=== PATIENT | male | born 1990 | race Caucasian/White ===

== ENCOUNTER 2022-06-15 08:19 | Emergency (ER) | payer BC, SELFPAY ==
[2022-06-15 08:19] VITALS: BP 152/139; PULSE 97; RESP 16; TEMP 36.6; O2SAT 99; BMI 31.4
--- NOTE | 2022-06-15 08:34 | RAD_ITS ---
STUDY: X-RAY - RIGHT ANKLE REASON FOR EXAM: Male, 32 years old. INJURY PAIN THROUGHOUT ENTIRE ANKLE S/P INJURY PLAYING HOCKEY LAST NIGHT TECHNIQUE: 3 view(s) of the ankle. COMPARISON: None. FINDINGS: Normal visualized distal tibia and fibula. Normal medial and lateral malleoli. Normal tibiotalar articulation and ankle mortise. Normal visualized talus and calcaneus. The visualized subtalar, talonavicular, calcaneocuboid and tarsal articulations are normal. No visualized fracture or osteochondral defect. The soft tissue structures are unremarkable. RAD/Ankle min 3 Views IMPRESSION: Normal x-ray examination of the ankle. Electronically Signed: Kaushik Woodward MD at 9:32 EDT ,
--- NOTE | 2022-06-15 08:57 | EDS_ITS ---
HPI History of Present Illness HPI Narrative: Patient presents with right ankle pain that began yesterday. Patient states he was playing hockey and twisted his ankle. Patient states he then fell. Patient states that he pain is sharp. Patient states the pain is worse with certain movements. Patient states it is better with rest. Patient denies any paresthesias or weakness. Patient denies any radiation of the pain. Patient denies any pain over the fifth metatarsal or proximal fibula. Patient denies an y other injuries. Chief Complaint: Lower Extremity Injury Informant: patient Occured/Mechanism Comment: Twisting Onset/Context/Timing Onset: Yesterday Context: Sudden Onset Timing: Continuous Quality of Pain: Sharp Location: Right ankle Worsened by: Certain movements Relieved by: Nothing Associated Symptoms Associated Symptoms: Negative for Parasthesia, Weakness or Loss of Funtion PFSH PFSH Medical History no medical history no medical history Allergy/AdvReac Type Severity Reaction Status Date / Time No Known Allergies Allergy Verified 06/15/22 08:21 Surgical History no surgical history no surgical history Social History (Updated 06/15/22 @ 08:[address] Corey Roche, DO) Smoking Status: Current every day smoker tobacco type: cigarettes Smoking packs per day: 1 Smoking cigarettes per day: 20.0 ROS ROS ED Constitutional Constitutional ED: Reports sweats; Denies chills or fever(s) Eyes Eyes: Denies blurry vision or change in vision ENT ENT ED: Denies rhinorrhea or sore throat Cardiovascular Cardiovascular: Denies chest pain or palpitations Respiratory/Chest Respiratory/Chest: Denies cough or dyspnea Gastrointestinal Gastrointestinal: Denies nausea or vomiting Genitourinary Genitourinary ED: Denies dysuria or hematuria Musculoskeletal Musculoskeletal: Denies back pain or neck pain Integumentary Denies abscess or rash Neurologic Neurologic: Denies headache(s) or weakness Allergic/Immunologic Allergic/Immunologic ED: Denies mouth swelling or urticaria EXAM Physical Exam Const Vital Signs: 06/15/22 08:19 Temperature 97.9 F Temperature Source Temporal Pulse Rate 97 Respiratory Rate 16 Blood Pressure 152/139 H Blood Pressure Mean 143 Pulse Ox 99 Oxygen Delivery Method Room Air Positive well nourished and well developed General Appearance ED: well developed and NAD Neck full ROM and supple Extremity Extremity Narrative: There is tenderness and edema over the right ankle. There is no obvious deformity. There is no bony crepitance or step-off. There is no tenderness over the proximal fibula. There is no tenderness over the fifth metatarsal. Achilles tendon is intact. Herbert test is negative. Range of motion was limited in all motions of the right ankle secondary to pain. Pedal pulses are equal bilaterally. Sensation was intact to light touch in all digits. Capillary refill was less than 2 seconds in all digits. Neuro oriented x3, CN's II-XII intact bilaterally, moves all extremities and no sensory deficits noted Sensorium / Orientation: alert Motor Exam: strength 5/5 throughout Psych mental status grossly normal MDM MDM MDM Narrative Medical decision making narrative: X-rays of the right ankle were obtained. There are 3 views. On my interpretation, there is no acute fracture. There is no dislocation. There is some mild soft tissue swelling. Radiologist also interpreted the x-rays and agrees. Patient was given an Aircast. Patient was instructed to ice and elevate the right ankle. Patient was was instructed to take Tylenol or ibuprofen as needed for pain. Patient was instructed to follow-up with his primary care physician in 5 to 7 days. Patient understood and was agreeable with the plan. All questions were answered. Radiography Diagnostic Testing: Clinical Impression(s) from Imaging Studies Ankle X-Ray 06/15/22 08:34 IMPRESSION: Normal x-ray examination of the ankle. Electronically Signed: Kaushik Woodward MD at 9:32 EDT Reading Location ID and State: [address] [place] [address] , Service support , Discharge Plan Triage Chief Complaint: Lower Extremity Injury ED Provider: Corey Roche Dx/Rx/DC Orders Clinical Impression: Right ankle sprain Instructions: ED Ankle Sprain (Adult) Primary Care Provider: Care Physician,No Primary Referrals: Keenan Ny MD [Med Staff - Active Staff] - 5-7 Days Disposition Disposition: Home, Self Care
[2022-06-15 10:21] VITALS: RESP 16
== END 2022-06-15 10:21 | disposition home or self-care (01) ==
PROVIDERS: Emergency Provider Emergency Medicine; Visit Provider Emergency Medicine
DX: S93.401A Sprain of unspecified ligament of right ankle, initial encounter (principal); F17.210 Nicotine dependence, cigarettes, uncomplicated; W18.39XA Other fall on same level, initial encounter
CPT/HCPCS: 73610; 99283

== ENCOUNTER → 2022-07-02 | Outpatient (CLI) | payer BC, SELFPAY ==
--- NOTE | 2022-07-02 11:14 | RAD_ITS ---
EXAM: XR RIGHT ANKLE COMPLETE, 3 OR MORE VIEWS CLINICAL INDICATION: INJURY pain TECHNIQUE: Frontal, lateral and oblique views of the right ankle. This report was created using [employer] report generation technology. COMPARISON: None. FINDINGS: BONES/JOINTS: Unremarkable. No acute fracture. No subluxation. Normal alignment. Preservation of the joint space. No sclerotic or destructive changes observed. SOFT TISSUES: Unremarkable. No soft tissue swelling or gas. No radiopaque foreign body. RAD/Ankle min 3 Views IMPRESSION: Negative right ankle x-rays. Electronically Signed: Tony Griffith MD at 18:24 EDT ,
== END | disposition home or self-care (01) ==
LOC: MTRAD 11:13
PROVIDERS: PCP Family Medicine; Referring Provider Family Medicine; Visit Provider Family Medicine
DX: S99.911A Unspecified injury of right ankle, initial encounter (principal)
CPT/HCPCS: 73610

== ENCOUNTER → 2022-08-07 | Outpatient (CLI) | payer BC, SELFPAY ==
[2022-08-07 17:46] LABS: Absolute Neutrophil Count 3.3 X10^3/uL (2.0-7.7); Basophil# 0.04 X10^3/uL; Basophil% 0.7 % (0-1); Eosinophil# 0.05 X10^3/uL; Eosinophils% 0.8 % (0-5); Hematocrit 40.8 % (40-54); Hemoglobin 14.1 g/dL (13.0-16.5); Lymphocyte % 36.1 % (19-41); Mean Corp Hgb Conc 34.6 g/dL (32-36); Mean Corpuscular Hgb 29.6 pg (27.0-32.0); Mean Corpuscular Volume 85.7 fL (80-94); Mean Platelet Vol. 9.1 fl (6.2-12.0); Monocyte# 0.44 X10^3/uL; Monocyte% 7.2 % (0-10); NRBC Flagged by Analyzer 0 % (0-5); Neutrophil # 3.34 X10^3/uL (2.7-7.7); Neutrophil % 54.9 % (47-70); Platelet Count 233 K/mm3 (150-450); RBC Distribution Width CV 12.7 % (11.6-14.6); RBC Distribution Width SD 39.5 fl (35.1-43.9); Red Blood Count 4.76 M/mm3 (4.6-6.2); White Blood Count 6.1 K/mm3 (4.4-11.0)
[2022-08-07 18:53] LABS: Ferritin 22 ng/mL (26-388); Iron 61 ug/dL (65-175); Iron Binding Capacity,Total 386 ug/dL (250-450)
== END | disposition home or self-care (01) ==
LOC: MTLAB 14:41
PROVIDERS: PCP Family Medicine; Referring Provider Family Medicine; Visit Provider Family Medicine
DX: K92.2 Gastrointestinal hemorrhage, unspecified (principal); K21.9 Gastro-esophageal reflux disease without esophagitis
CPT/HCPCS: 36415; 82728; 83540; 83550; 84443; 85025

== ENCOUNTER → 2022-11-06 | Outpatient (CLI) | payer BC, SELFPAY ==
[2022-11-06 18:09] LABS: Absolute Lymphocyte Count 1.58 X10^3/uL (0.83-4.51); Absolute Neutrophil Count 3.5 X10^3/uL (2.0-7.7); Basophil# 0.02 X10^3/uL; Basophil% 0.4 % (0-1); Eosinophil# 0.06 X10^3/uL; Eosinophils% 1.1 % (0-5); Lymphocyte # 1.58 X10^3/ul (0.83-4.51); Lymphocyte % 28.3 % (19-41); Mean Corp Hgb Conc 34.1 g/dL (32-36); Mean Corpuscular Hgb 29.6 pg (27.0-32.0); Mean Corpuscular Volume 86.7 fL (80-94); Mean Platelet Vol. 9.1 fl (6.2-12.0); Monocyte# 0.41 X10^3/uL; Monocyte% 7.3 % (0-10); NRBC Flagged by Analyzer 0 % (0-5); Neutrophil % 62.7 % (47-70); Platelet Count 220 K/mm3 (150-450); RBC Distribution Width CV 12.1 % (11.6-14.6); RBC Distribution Width SD 38.7 fl (35.1-43.9); Red Blood Count 4.73 M/mm3 (4.6-6.2); White Blood Count 5.6 K/mm3 (4.4-11.0)
[2022-11-06 18:25] LABS: Ferritin 33 ng/mL (26-388); Iron 98 ug/dL (65-175); Iron Binding Capacity,Total 334 ug/dL (250-450)
== END | disposition home or self-care (01) ==
LOC: MTLAB 14:32
PROVIDERS: PCP Family Medicine; Referring Provider Family Medicine; Visit Provider Family Medicine
DX: E61.1 Iron deficiency (principal)
CPT/HCPCS: 36415; 82728; 83540; 83550; 85025

== ENCOUNTER → 2023-04-30 | Outpatient (CLI) | payer BC, SELFPAY ==
[2023-04-30 10:03] LABS: Platelet Count 224 K/mm3 (150-450); RET-HE 34.5 pg (30-35); Reticulocyte Count 1.22 % (0.5-1.5)
[2023-04-30 10:14] LABS: Erythrocyte Sedimentation Rate 9 mm/hr (0-20)
[2023-04-30 10:35] LABS: Amylase 44 U/L (25-115); CRP < 2.90 mg/L (0.0-3.0); Ferritin 43 ng/mL (26-388); Iron 76 ug/dL (65-175); LDH 154 U/L (87-241); Lipase 33 U/L (13-75)
== END | disposition home or self-care (01) ==
PROVIDERS: PCP Family Medicine; Referring Provider Internal Medicine Gastroenterology; Visit Provider Internal Medicine Gastroenterology
DX: R19.7 Diarrhea, unspecified (principal)
CPT/HCPCS: 36415; 82150; 82653; 82705; 82728; 82784; 82785; 83516; 83540; 83615; 83630; 83690; 83993; 84165; 85045; 85652; 86003; 86005; 86140; 86225; 86235; 86255; 86256; 86334; 87177; 87209; 87329

== ENCOUNTER → 2023-11-05 | Outpatient (CLI) | payer BC, SELFPAY ==
--- OUTSIDE RECORDS SUMMARY | 2023-11-05 14:39 | XMS RPT_ITS | CCD ---
Author Name Unknown Address [address] [place] [address] Organization [facility] Care Team Providers Care Vulnerability Assessment Analyst Name Role Phone Sarthak Russ Unavailable Unavailable Elaine Russs Unavailable Unavailable Yang Garcia Unavailable Unavailable Porco, Donato Unavailable Unavailable Sarthak Russ Unavailable Unavailable Jose Linares Unavailable Unavailable Khoa Norwoodalamguillaume Unavailable Unavailable Diana Moreno Unavailable Unavailable Jose Linares Unavailable Unavailab Sarthak Hawley Unavailable Unavailable Jose Lniares Unavailable Unavailable Jose Linares Unavailable Unavailable Unavailable [...] 97.9 [degF] Jose Linares [facility]: 06-02-2021 17:54-0400 Diastolic blood [...] [facility] Work Phone: Start: 04-08-2022 Rx Renewal Jose wilkins Work Phone: [facility] Work Phone: Start: 04-02-2022 AUDIT Jose wilkins Work Phone: [facility] Work Phone: Start: 12-02-2021 Rx Renewal Jose wilkins Work Phone: [facility] Work Phone: Start: 08-18-2021 AUDIT Jose Maritza Costa wilkins Work Phone: [facility] Work Phone: Start: 07-08-2021 AUDIT Jose wilkins Work Phone: [facility] Work Phone: Start: 07-03-2021 AUDIT Jose Maritza Sanford[facility] wilkins Work Phone: [facility] Work Phone: Start: 06-12-2021 AUDIT Jose wilkins Work Phone: [facility] Work Phone: Start: 06-02-2021 Office outpatient vi sit 15 minutes Jose Linares Work Phone: [facility] Work Phone: Start: 04-22-2021 AUDIT Jose wilkins Work Phone: [facility] Work Phone: Start: 04-02-2021 Office outpatient vi sit 25 minutes Jose Linares Work Phone: [facility] Work Phone: Start: 10-31-2020 Patient encounter procedure Jose Linares [facility] Work Phone: Start: 08-09-2020 Patient encounter procedure Jose Linares [facility] Work Phone: Start: 07-17-2020 Patient encounter procedure Jose Linares [facility] Work Phone: Start: 06-26-2020 Patient encounter procedure Jose Linares [facility] Work Phone: Start: 06-13-2020 Patient encounter procedure Jose Linares [facility] Work Phone: Start: 05-20-2020 Patient encounter procedure Jose Linares [facility] Work Phone: Start: 05-15-2020 Patient encounter procedure Jose Linares [facility] Work Phone: Start: 04-12-2020 Patient encounter procedure Jose Linares [facility] Work Phone: Start: 03-18-2020 Patient encounter procedure [...] Start: 02-21-2020 Patient encounter procedure Sarthak Russ [facility] Work Phone: Start: 12-12-2019 Patient encounter procedure Sarthak Russ [facility] Work Phone: Start: 11-15-2019 Patient encounter procedure Sarthak Russ [facility] Work Phone: Procedures Date Procedure Procedure [...] Diana Moreno, Status: Pen, Time: 9:00 AM [facility] Work Phone: [facility] [address]57 Work Phone: NEGATED: Highlighted row has been ruled out! Planned Goals not documented [facility] 1057 Work Phone: Payers Date Payer Category Payer Policy ID Unknown ANTHEM Social History Date Type Detail Facility Assertion Tobacco smoking consumption unknown (finding) [facility] 1057 Work Phone: Occasional alcohol use Occasional alcohol use [facility] Work Phone: Functional Status Date Assessment Result Facility NEGATED: Highlighted row Functional performance Functional status health issues are not documented Disease [facility] 1057 Work Phone: Mental Status Date Assessment Result Facility NEGATED: Highlighted row Cognitive function [Interpretation] Cognitive status health issues are not documented Disease [facility] 1057 Work Phone: History of Present illness [...] breath, dyspnea on exertion or rash. [facility] Work Phone: History of Present illness Narrative [...] on 40 mg daily a daily basis. -[facility] Work Phone: Family History Mother Name Dates [...] DATE CREATED AUTHOR AUTHOR'S ORGANIZ ATION 02/21/2021 [facility] DATE CREATED AUTHOR AUTHOR'S ORGANIZ ATION 06/04/2021 [facility] DATE CREATED AUTHOR AUTHOR'S ORGANIZ ATION 06/04/2021 [facility] FOR RECORDS PERTAINING TO PATIENTS WHO ARE [...] BE BASED ON THE PRIMARY CLINICAL RECORDS. [facility] [employer] [facility]. provides no warranty or guarantee of the accuracy or completeness of information in this document.
== END | disposition home or self-care (01) ==
LOC: LAB 14:22
PROVIDERS: PCP Family Medicine; Referring Provider Internal Medicine Gastroenterology; Visit Provider Internal Medicine Gastroenterology
DX: Z00.00 Encounter for general adult medical examination without abnormal findings (principal)

== ENCOUNTER → 2023-11-05 | Outpatient (CLI) | payer BC, SELFPAY ==
--- OUTSIDE RECORDS SUMMARY | 2023-11-05 14:20 | XMS RPT_ITS | CCD ---
Author Name Unknown Address [address] [place] [address] Organization [facility] Care Team Providers Care Wildlife Ecology Professor Name Role Phone Sarthak Russ Unavailable Unavailable Elaine Russs Unavailable Unavailable Yang Garcia Unavailable Unavailable Porco, Donato Unavailable Unavailable Sarthak Russ Unavailable Unavailable Jose Linarse Unavailable Unavailable Khoa Norwoodalamguillaume Unavailable Unavailable Diana Moreno Unavailable Unavailable Jose Linares Unavailable Unavailab Sarthak Hawley Unavailable Unavailable Jose Linares Unavailable Unavailable Jose Linares Unavailable Unavailable Unavailable Unavailable Unavailable Medications Completed/Discontinued Medications Medication Drug Class(es) Dates Sig (Normalized) Sig (Original) azelastine hydrochloride 0.5 mg/ml ophthalmic solution (14 sources) Histamine-1 Receptor Antagonist Start: 06-19-2020 take 1 drop(s) into the eye(s) twice daily Azelastine HCl - 0.05 % Ophthalmic Solution INSTIL 1 DROP TWICE A DAY INTO EFFECTED EYES Quantity: 6 Refills: 0 Ordered: 19-Jun-2020 DO Start : 19-Jun-2020 Active desonide 0.0005 mg/mg topical ointment (12 sources) Corticosteroid Start: 10-26-2020 Desonide 0.05 % External Ointment APPLY INSIDE NOSTRILS TWICE DAILY NEEDED FOR DRYNESS AND IRRITATION, WEDNESDAY THROUGH WEDNESDAY Quantity: 15 Refills: 0 Ordered: 23-Jan-2021 DO Start : 26-Oct-2020 Active dicyclomine hydrochloride 10 mg oral capsule (13 sources) Anticholinergic Start: 10-31-2020 take 1 capsule by mouth three times daily Dicyclomine HCl - 10 MG Oral Capsule TAKE 1 CAPSULE 3 TIMES DAILY. Quantity: 270 Refills: 3 Ordered: 02-Apr-2022 Diana Moreno MD Start : 31-Oct-2020 Active finasteride 1 mg oral tablet (4 sources) 5-alpha Reductase Inhibitor Finasteride 1 MG Oral Tablet Refills: 0 Active Suprep Bowel Prep Kit 17.5-3.13-1.6 GM/177ML Oral Solution (1 source) Start: 11-19-2020 Suprep Bowel Prep Kit 17.5-3.13-1.6 GM/177ML Oral Solution USE DIRECTED. Quantity: 1 Refills: 0 Diana Moreno MD Start : 19-Nov-2020 Active 2 x 177 ML Bottle mupirocin 0.02 mg/mg topical ointment (14 sources) RNA Synthetase Inhibitor Antibacterial Start: 08-09-2020 Mupirocin 2 % External Ointment APPLY SPARINGLY TO AFFECTED AREA(S) TWICE DAILY Quantity: 1 Refills: 0 Ordered: 09-Aug-2020 Tzinis DO, Inge Start : 09-Aug-2020 Active Problems Active Problems Problem Classification Problem Date Documented Da te Episodic/Chronic Abdominal pain (20 sources) Left lower quadrant pain; Translations: [Nonspecific abdominal pain] Episodic Administrative/social admission (20 sources) Patient encounter status; Translations: [Other specified counseling] Episodic Past or Other Problems Problem Classification Problem Date Documented Da te Episodic/Chronic Unclassified (6 sources) Drug therapy finding; Translations: [Encounter for medication review and counseling] Unclassified (6 sources) Strain of muscle at thorax level; Translations: [Thoracic myofascial strain] Unclassified (3 sources) Patient encounter status; Translations: [Cardiac risk counseling] Unclassified (13 sources) Colonoscopy planned; Translations: [Colonoscopy planned] NEGATED: Highlighted row has not occurred!Residual codes; unclassified (20 sources) Disease Episodic Results Test Name Value Interpretation Reference Range Facil ity Vital Signs Date Time Vital Sign Value Performing Clinician Iraida gordon 06-02-2021 17:54-0400 Body temperature 97.9 [degF] [facility] Work Phone: 06-02-2021 17:54-0400 Diastolic blood pressure 68 mm[Hg] Jose Linares Work Phone: [facility] Work Phone: 06-02-2021 17:54-0400 Heart rate 72 /min Jose Linares Work Phone: [facility] Work Phone: 06-02-2021 17:54-0400 Respiratory rate 16 /min Jose Linares Work Phone: [facility] Work Phone: 06-02-2021 17:54-0400 SaO2% (BldA) [Mass fraction] 97 % Jose Linares Work Phone: [facility] Work Phone: 06-02-2021 17:54-0400 Systolic blood pressure 144 mm[Hg] Jose Linares Work Phone: [facility] Work Phone: 06-02-2021 17:54-0400 1 1 Jose Linares Work Phone: [facility] Work Phone: Encounters Encounter Date Encounter Type Care Provider Facility Start: 08-31-2022 Rx Renewal Jose wilkins Work Phone: [facility] Work Phone: Start: 04-08-2022 Rx Renewal Jose wilkins Work Phone: [facility] Work Phone: Start: 04-02-2022 AUDIT Jose wilkins [facility] Work Phone: Start: 12-02-2021 Rx Renewal Jose wilkins Work Phone: [facility] Work Phone: Start: 08-18-2021 AUDIT Jose Maritza Costa wilkins Work Phone: [facility] Work Phone: Start: 07-08-2021 AUDIT Jose wilkins Work Phone: [facility] Work Phone: Start: 07-03-2021 AUDIT Jose Maritza Sanfordgabi wilkins Work Phone: [facility] Work Phone: Start: 06-12-2021 AUDIT Jose wilkins Work Phone: [facility] Work Phone: Start: 06-02-2021 Office outpatient vi sit 15 minutes Jose Linares Work Phone: [facility] Work Phone: Start: 04-22-2021 AUDIT Jose wilkins Work Phone: [facility] Work Phone: Start: 04-02-2021 Office outpatient vi sit 25 minutes Jose Linares Work Phone: [facility] Work Phone: Start: 10-31-2020 Patient encounter procedure Jose Linares [facility] Work Phone: Start: 08-09-2020 Patient encounter procedure Jose Linares [facility] Work Phone: Start: 07-17-2020 Patient encounter procedure [facility]inares [facility] Work Phone: Start: 06-26-2020 Patient encounter procedure Jose Linares [facility] Work Phone: Start: 06-13-2020 Patient encounter procedure Jose Linares [facility] Work Phone: Start: 05-20-2020 Patient encounter procedure Jose Linares [facility] Work Phone: Start: 05-15-2020 Patient encounter procedure Jose Linares [facility] Work Phone: Start: 04-12-2020 Patient encounter procedure Jose Linares [facility] Work Phone: Start: 03-18-2020 Patient encounter procedure Donato Porco [facility] [address] Work Phone: Start: 03-12-2020 Patient encounter procedure Donato Porco [facility] [address] Work Phone: Start: 03-06-2020 Patient encounter procedure Donato Porco [facility] [address] Work Phone: Start: 03-04-2020 Patient encounter procedure Donato Porco [facility] [address] Work Phone: Start: 02-29-2020 Patient encounter procedure Donato Porco [facility] [address] Work Phone: Start: 02-21-2020 Patient encounter procedure Sarthak Russ [facility] Work Phone: Start: 12-12-2019 Patient encounter procedure Sarthak Russ [facility] Work Phone: Start: 11-15-2019 Patient encounter procedure Sarthak Russ [facility] Work Phone: Procedures Date Procedure Procedure Detail Performing Clinician Start: 11-19-2020 Colonoscopy Jose white Start: 08-09-2020 Urinalysis, automated G eorge Vijay Start: 07-23-2020 Endoscopy - Upper GI Ge orge Vijay Start: 03-12-2020 Lipid panel Donato Bah rco Start: 03-12-2020 NM Cardiac Stress/Re st Nuclear Med Order Donato Driver History of No histor y of surgery Sarthak Russ No history of surgery Jose Salas Vijay Work Phone: Plan of Treatment Date Care Activity Detail Author Start: 10-08-2021 FUV, Provider: Diana Moreno, Status: Pen, Time: 9:00 AM FUV, Provider: Diana Moreno, Status: Pen, Time: 9:00 AM [facility] Work Phone: [facility] Work Phone: NEGATED: Highlighted row has been ruled out! Planned Goals not documented [facility] [address] Work Phone: Payers Date Payer Category Payer Policy ID Unknown ANTHEM Social History Date Type Detail Facility Assertion Tobacco smoking consumption unknown (finding) [facility] [address] Work Phone: Occasional alcohol use Occasional alcohol use [facility] Work Phone: Functional Status Date Assessment Result Facility NEGATED: Highlighted row Functional performance Functional status health issues are not documented Disease [facility] [address] Work Phone: Mental Status Date Assessment Result Facility NEGATED: Highlighted row Cognitive function [Interpretation] Cognitive status health issues are not documented Disease [facility] [address] Work Phone: History of Present illness Narrative 05-24-2021 Note Date & Type Note Facility 05-24-2021 History of Present illness Narrative Patient presents with very runny nose that sometimes copious and pouring out of his nose and occasional cough. He does not have a history of asthma has never needed an inhaler. He has had the symptoms intermittently over the last 10 days. No h/o nausea, vomiting, fever, chills, sweats, abdominal pain, chest pain, shortness of breath, dyspnea on exertion or rash. [facility] Work Phone: History of Present illness Narrative Note Date & Type Note Facility History of Present illness Narrative Mr. Sauer is a 31 year old male who comes in for follow-up regarding abdominal pain and bloody stools. He states his symptoms have markedly improved since being on the Bentyl 3 times a day as well as exercising and eating healthier. He did have a colonoscopy recently no evidence of Crohn's or ulcerative colitis MR enterography was also done that was negative. Since his symptoms have improved pill capsule was held off. He is also on the venlafaxine along with the Bentyl as well. He is also currently on pantoprazole once daily but is not feeling any breakthrough acid reflux. He is on 40 mg daily a daily basis. -[facility] Work Phone: Family History Mother Name Dates Details No pertinent family history( V49.89, Z78.9) Status:Active Mother Name Dates Details No pertinent family history( V49.89, Z78.9) Status:Active Mother Name Dates Details No pertinent family history( V49.89, Z78.9) Status:Active Mother Name Dates Details No pertinent family history( V49.89, Z78.9) Status:Active Mother Name Dates Details No pertinent family history( V49.89, Z78.9) Status:Active Mother Name Dates Details No pertinent family history( V49.89, Z78.9) Status:Active Unknown Family Member Name Dates Details No pertinent family history: Mother(V49.89, Z78.9) Status:Active Unknown Family Member Name Dates Details No pertinent family history: Mother(V49.89, Z78.9) Status:Active Unknown Family Member Name Dates Details No pertinent family history: Mother(V49.89, Z78.9) Status:Active Unknown Family Member Name Dates Details No pertinent family history: Mother(V49.89, Z78.9) Status:Active Unknown Family Member Name Dates Details No pertinent family history: Mother(V49.89, Z78.9) Status:Active Unknown Family Member Name Dates Details No pertinent family history: Mother(V49.89, Z78.9) Status:Active Unknown Family Member Name Dates Details No pertinent family history: Mother(V49.89, Z78.9) Status:Active Summary Purpose Advance Directives No Advanced Directives Records FoundNo Advanced Directives Records FoundNo Advanced Directives Records FoundNo Advanced Directives Records Found Chief Complaint Established Patient in to Follow Up for Blood in Stools, resolved. PCP is Dr. Jose Linares.Established Patient in to Follow Up for Blood in Stools, resolved. PCP is Dr. Jose Linares. Additional Source Comments (unrecognized sect ion and content) No Status Records FoundNo Status Records FoundNo Status Records FoundNo Status Records Found INFORMATION SOURCE (unrecogn ized section and content) DATE CREATED AUTHOR AUTHOR'S ORGANIZ ATION 02/21/2021 [facility] DATE CREATED AUTHOR AUTHOR'S ORGANIZ ATION 06/04/2021 [facility] DATE CREATED AUTHOR AUTHOR'S ORGANIZ ATION 06/04/2021 [facility] FOR RECORDS PERTAINING TO PATIENTS WHO ARE OR HAVE BEEN ENROLLED IN A CHEMICAL DEPENDENCY/SUBSTANCEABUSE PROGRAM, SOME INFORMATION MAY BE OMITTED. This clinical summary was aggregated from multiple sources. Caution should be exercised in using it in the provision of clinical care. This summary normalizes information from multiple sources, and as a consequence, information in this document may materially change the coding, format and clinical context of patient data. In addition, data may be omitted in some cases. CLINICAL DECISIONS SHOULD BE BASED ON THE PRIMARY CLINICAL RECORDS. [facility] [employer] [facility]. provides no warranty or guarantee of the accuracy or completeness of information in this document.
[2023-11-05 15:33] LABS: Absolute Lymphocyte Count 2.12 X10^3/uL (0.83-4.51); Absolute Neutrophil Count 2.9 X10^3/uL (2.0-7.7); Basophil# 0.03 X10^3/uL; Basophil% 0.5 % (0-1); Eosinophil# 0.05 X10^3/uL; Eosinophils% 0.9 % (0-5); Hematocrit 40.2 % (40-54); Hemoglobin 14.4 g/dL (13.0-16.5); Lymphocyte # 2.12 X10^3/ul (0.83-4.51); Lymphocyte % 38.5 % (19-41); Mean Corp Hgb Conc 35.8 g/dL (32-36); Mean Corpuscular Hgb 30.8 pg (27.0-32.0); Mean Corpuscular Volume 85.9 fL (80-94); Mean Platelet Vol. 8.5 fl (6.2-12.0); Monocyte# 0.43 X10^3/uL; Monocyte% 7.8 % (0-10); NRBC Flagged by Analyzer 0 % (0-5); Neutrophil # 2.87 X10^3/uL (2.7-7.7); Neutrophil % 52.1 % (47-70); Platelet Count 214 K/mm3 (150-450); RBC Distribution Width CV 11.7 % (11.6-14.6); RBC Distribution Width SD 36.7 fl (35.1-43.9); Red Blood Count 4.68 M/mm3 (4.6-6.2); White Blood Count 5.5 K/mm3 (4.4-11.0)
[2023-11-05 15:56] LABS: Ferritin 40 ng/mL (26-388); Iron 81 ug/dL (65-175); Iron Binding Capacity,Total 376 ug/dL (250-450)
== END | disposition home or self-care (01) ==
LOC: MFPLAB 14:00
PROVIDERS: PCP Family Medicine; Visit Provider Family Medicine
DX: E61.1 Iron deficiency (principal)
CPT/HCPCS: 36415; 82728; 83540; 83550; 85025

== ENCOUNTER → 2023-12-14 | Outpatient (CLI) | payer BC, SELFPAY ==
--- OUTSIDE RECORDS SUMMARY | 2023-12-14 08:58 | XMS RPT_ITS | CCD ---
Author Name Unknown Address [address] [place] [address] Organization [facility] Care Team Providers Care [employer] Name Role Phone Sarthak Russ Unavailable Unavailable [...] 97.9 [degF] Jose [facility]res [facility] Work Phone: 06-02-2021 17:54-0400 Diastolic blood [...] 08-31-2022 Rx Renewal Jose wilkins Work Phone: [facility] [address]57 Work Phone: Start: 04-08-2022 Rx Renewal Jose wilkins Work Phone: [facility] 1057 Work Phone: Start: 04-02-2022 AUDIT Jose wilkins Work Phone: [facility] Work Phone: Start: 12-02-2021 Rx Renewal Jose wilkins Work Phone: [facility] [address]57 Work Phone: Start: 08-18-2021 AUDIT Jose Maritza Costa wilkins Work Phone: [facility] Work Phone: Start: 07-08-2021 AUDIT Jose wilkins Work Phone: [facility] 1057 Work Phone: Start: 07-03-2021 AUDIT Jose Maritza [facility] Work Phone: [facility] [address]57 Work Phone: Start: 06-12-2021 AUDIT Jose wilkins Work Phone: [facility] Work Phone: Start: 06-02-2021 Office outpatient vi sit 15 minutes Jose Linares Work Phone: [facility] Work Phone: Start: 04-22-2021 AUDIT Jose wilkins Work Phone: [facility] [address]57 Work Phone: Start: 04-02-2021 Office outpatient vi sit 25 minutes Jose Linares Work Phone: [facility] Work Phone: Start: 10-31-2020 Patient encounter procedure Jose Linares [facility] Work Phone: Start: 08-09-2020 Patient encounter procedure Jose Linares [facility] Work Phone: Start: 07-17-2020 Patient encounter procedure [facility]inares [facility] Work Phone: Start: 06-26-2020 Patient encounter procedure Jose Linares [facility] Work Phone: Start: 06-13-2020 Patient encounter procedure Jose Linares [facility] Work Phone: Start: 05-20-2020 Patient encounter procedure Jose Linares [facility] Work Phone: Start: 05-15-2020 Patient encounter procedure Jose Linares [facility] Work Phone: Start: 04-12-2020 Patient encounter procedure Jose Linares [facility] Work Phone: Start: 03-18-2020 Patient encounter procedure [...] Start: 02-21-2020 Patient encounter procedure Sarthak Russ [facility] Work Phone: Start: 12-12-2019 Patient encounter procedure Sarthak Russ [facility] Work Phone: Start: 11-15-2019 Patient encounter procedure Sarthak Russ [facility] Work Phone: Procedures Date Procedure Procedure [...] Diana Moreno, Status: Pen, Time: 9:00 AM [facility] Work Phone: [facility] 1057 Work Phone: NEGATED: Highlighted row has been ruled out! Planned Goals not documented [facility] 1057 Work Phone: Payers Date Payer Category Payer Policy ID Unknown ANTHEM Social History Date Type Detail Facility Assertion Tobacco smoking consumption unknown (finding) [facility] [address] Work Phone: Occasional alcohol use Occasional alcohol use [facility] Work Phone: Functional Status Date Assessment Result Facility NEGATED: Highlighted row Functional performance Functional status health issues are not documented Disease [facility] 1057 Work Phone: Mental Status Date Assessment Result Facility NEGATED: Highlighted row Cognitive function [Interpretation] Cognitive status health issues are not documented Disease [facility] [address]57 Work Phone: History of Present [...] breath, dyspnea on exertion or rash. [facility] Work Phone: History of Present illness Narrative [...] on 40 mg daily a daily basis. -[facility] Work Phone: Family History Mother Name Dates [...] DATE CREATED AUTHOR AUTHOR'S ORGANIZ ATION 02/21/2021 [facility] DATE CREATED AUTHOR AUTHOR'S ORGANIZ ATION 06/04/2021 [facility] [place] DATE CREATED AUTHOR AUTHOR'S ORGANIZ ATION 06/04/2021 [employer] FOR RECORDS PERTAINING TO PATIENTS WHO ARE [...] BE BASED ON THE PRIMARY CLINICAL RECORDS. [facility]. provides no warranty or guarantee of the accuracy or completeness of information in this document.
[2023-12-21 21:07] LABS: Pancreatic Elastase, Fecal 408 (>200)
[2023-12-22 20:08] LABS: Calprotectin, Stool 48 ug/g (0-120); Fats, Neutral Normal (.); Fats, Total Normal (.)
== END | disposition home or self-care (01) ==
LOC: LABSPEC 08:35
PROVIDERS: PCP Family Medicine; Referring Provider Internal Medicine Gastroenterology; Visit Provider Internal Medicine Gastroenterology
DX: K59.1 Functional diarrhea (principal)
CPT/HCPCS: 82274; 82653; 82705; 83630; 83993; 87177; 87209; 87329; 87493; 87506

== ENCOUNTER → 2024-12-15 | Outpatient (CLI) | payer BC, SELFPAY ==
[2024-12-15 12:59] LABS: ALB/GLOB Ratio 1.4 RATIO (0.9-2.4); AST(SGOT) 28 U/L (<=37); Alanine Aminotransfer ALT/SGPT 43 U/L (<=46); Albumin, Serum 4.4 g/dL (3.5-5.0); Alkaline Phosphatase 49 U/L (40-129); Anion Gap 12 (5-15); BUN 7 mg/dL (4-19); BUN/Creat Ratio 8.4 RATIO (10-20); Calcium 9.7 mg/dL (7.6-11.0); Chloride 106 mmol/L (96-108); Creatinine, Serum 0.87 mg/dL (0.70-1.20); EST Glomerular Filtration Rate 115 (>60); Ferritin 70 ng/mL (37-417); Globulin 3.1 g/dL (2.2-4.2); Glucose 91 mg/dL (70-99); Iron 92 ug/dL (65-175); Potassium 4.1 mmol/L (3.3-5.1); Protein, Total 7.4 g/dL (5.9-8.4); Sodium Level 140 mmol/L (133-145); Total Bilirubin 0.66 mg/dL (0.00-1.30)
[2024-12-15 13:46] LABS: Absolute Lymphocyte Count 1.95 X10^3/uL (0.83-4.51); Absolute Neutrophil Count 2.1 X10^3/uL (2.0-7.7); Basophil# 0.03 X10^3/uL; Basophil% 0.7 % (0-1); Eosinophil# 0.07 X10^3/uL; Eosinophils% 1.6 % (0-5); Hematocrit 42.9 % (40-54); Hemoglobin 15.2 g/dL (13.0-16.5); Lymphocyte # 1.95 X10^3/ul (0.83-4.51); Lymphocyte % 43.3 % (19-41); Mean Corp Hgb Conc 35.4 g/dL (32-36); Mean Corpuscular Hgb 30.1 pg (27.0-32.0); Mean Platelet Vol. 8.7 fl (6.2-12.0); Monocyte# 0.39 X10^3/uL; Monocyte% 8.7 % (0-10); NRBC Flagged by Analyzer 0 % (0-5); Neutrophil # 2.05 X10^3/uL (2.7-7.7); Neutrophil % 45.5 % (47-70); Platelet Count 236 K/mm3 (150-450); RBC Distribution Width CV 11.7 % (11.6-14.6); RBC Distribution Width SD 35.8 fl (35.1-43.9); Red Blood Count 5.05 M/mm3 (4.6-6.2); White Blood Count 4.5 K/mm3 (4.4-11.0)
[2024-12-15 18:31] LABS: Iron 92 ug/dL (65-175); Iron Binding Capacity,Total 303 ug/dL (250-450); Iron Binding Capacity,Unsat 211 ug/dL (228-428)
[2024-12-18 15:08] LABS: Deamidated Gliadin IgA 8 units (0-19); Deamidated Gliadin IgG 6 units (0-19); Endomysial Antibody IgA Negative (Negative); Immunoglobulin A 252 mg/dL (90-386); t-Transglutaminase IgA <2 U/mL (0-3)
== END | disposition home or self-care (01) ==
LOC: MFPLAB 10:50
PROVIDERS: PCP Family Medicine; Referring Provider Family Medicine; Visit Provider Family Medicine
DX: K92.2 Gastrointestinal hemorrhage, unspecified (principal); K90.0 Celiac disease
CPT/HCPCS: 36415; 80053; 82728; 82784; 83516; 83540; 83550; 83735; 85025; 86255

== ENCOUNTER → 2025-06-15 | Outpatient (CLI) | payer BC, SELFPAY ==
[2025-06-15 13:00] LABS: Hematocrit 42.2 % (40-54); Hemoglobin 15.1 g/dL (13.0-16.5); Immature Granulocytes Count 0.010 X10^3/uL (0.0-0.0); Mean Corp Hgb Conc 35.8 g/dL (32-36); Mean Corpuscular Volume 86.5 fL (80-94); Mean Platelet Vol. 8.6 fl (6.2-12.0); NRBC Flagged by Analyzer 0 % (0-5); Platelet Count 244 K/mm3 (150-450); RBC Distribution Width CV 11.8 % (11.6-14.6); RBC Distribution Width SD 37.2 fl (35.1-43.9); Red Blood Count 4.88 M/mm3 (4.6-6.2); White Blood Count 4.9 K/mm3 (4.4-11.0)
[2025-06-15 14:38] LABS: Alanine Aminotransfer ALT/SGPT 27 U/L (<=46); Albumin, Serum 4.4 g/dL (3.5-5.0); Alkaline Phosphatase 46 U/L (40-129); Cholesterol 142 mg/dL (<=200); Low Density Lipoprotein Calc. 78 mg/dL; Triglycerides 60 mg/dL; Very Low Density Lipoprotein 12 mg/dL (5-40); cholesterol:hdl ratio screen 2.71
[2025-06-15 14:52] LABS: AST(SGOT) 24 U/L (<=37); Anion Gap 14 (5-15); BUN 5 mg/dL (4-19); BUN/Creat Ratio 4.9 RATIO (10-20); Calcium,Total 9.5 mg/dL (7.6-11.0); Carbon Dioxide 22.1 mmol/L (21.0-32.0); Chloride 104 mmol/L (98-108); Ferritin 79 ng/mL (37-417); Globulin 3.0 g/dL (2.2-4.2); Glucose 92 mg/dL (70-99); Iron 81 ug/dL (65-175); Iron Binding Capacity,Total 300 ug/dL (250-450); Iron Binding Capacity,Unsat 219 ug/dL (228-428); Magnesium 2.1 mg/dL (1.5-2.2); Potassium 4.2 mmol/L (3.3-5.1); Vitamin B12 247 pg/mL (180-914)
== END | disposition home or self-care (01) ==
LOC: MFPLAB 10:29
PROVIDERS: PCP Family Medicine; Referring Provider Family Medicine; Visit Provider Family Medicine
DX: K90.0 Celiac disease (principal)
CPT/HCPCS: 36415; 80053; 80061; 82607; 82728; 83540; 83550; 83735; 85025